=== PATIENT | male | born 1985 | race Caucasian/White ===

== ENCOUNTER 2019-06-04 16:17 | Emergency (ER) | payer OTHER ==
--- NOTE | 2019-06-04 16:46 | ED Physician Documentation ---
PD HPI HEENT - Stated complaint Stated Complaint: LT EAR PX - Chief complaint Chief Complaint: Heent - History obtained from History obtained from: Patient - History of Present Illness Timing - onset: How many days ago (2) Timing - duration: Days (2) Timing - details: Gradual onset, Still present Location: Left ear Improves: Medication Associated symptoms: Headache. No: Fever, Congestion, Rhinorrhea, Trismus, Unable to swallow, Swollen nodes, Facial swelling, Cough Similar symptoms before: Diagnosis (swimmers ear) Recently seen: Not recently seen - Additional information Additional information: 33-year-old male has some pain to the left ear he is used some swimmer's ear drops to it and despite this he had continued pain this morning and he is come to the emergency department for further evaluation and treatment. He is worried about an overwhelming infection. He has had this infection previously. He does not swim but he does clean his ears every morning after he gets out of the shower. He is afraid he may be doing this too vigorously. He denies any nasal congestion cough sore throat or signs of systemic illness. He does have some headache and he has had a problem with cerumen. Review of Systems Constitutional: denies: Fever, Chills Eyes: denies: Decreased vision Ears: reports: Ear pain, Drainage/discharge. denies: Loss of hearing Nose: denies: Rhinorrhea / runny nose, Congestion Throat: denies: Sore throat Cardiac: denies: Chest pain / pressure, Palpitations Respiratory: denies: Dyspnea, Cough GI: denies: Vomiting PD PAST MEDICAL HISTORY - Present Medications Home Medications: Ambulatory Orders Medication Instructions Recorded Confirmed Neomycin/Polymyx/Hc Otic Drops 4 drops LEFTEAR QID #1 bottle 06/04/19 [Cortisporin Ear Susp] - Allergies Allergies/Adverse Reactions: Allergies Allergy/AdvReac Type Severity Reaction Status Date / Time Penicillins Allergy Unknown Verified 06/04/19 16:28 PD ED PE NORMAL - Vitals Vital signs reviewed: Yes (Normal) - General General: Alert and oriented X 3, No acute distress, Well developed/nourished - HEENT HEENT: Atraumatic, PERRL, EOMI, Other (There is inflammation in the canal itself with swelling as well. There is cerumen and debris in the canal and I am unable to see the tympanic membrane. 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 He has been using an [id number] preparation with some vinegar in it and despite this he did not have improvement after 1 day. I suspect he does have more improvement than he realizes. We will place him on some Cortisporin otic. I have discussed with the patient the anti-inflammatory properties and the cerumen impactions present bilaterally. He will use his cerumen softening drops. Departure - Departure Disposition: 01 Home, Self Care Clinical Impression: Impacted cerumen of both ears Otitis externa Qualifiers: Otitis externa type: swimmer's ear Chronicity: acute Laterality: left Qualified Code(s): H60.332 - Swimmer's ear, left ear Condition: Stable Instructions: ED Otitis Externa, ED Wax Ear Home Removal Follow-Up: VIRGILIO SHORE [Primary Care Provider] - Prescriptions: Neomycin/Polymyx/Hc Otic Drops [Cortisporin Ear Susp] 4 drops LEFTEAR QID #1 bottle
== END 2019-06-04 16:55 | disposition home or self-care (01) ==
LOC: ED 16:17
DX: H60.332 Swimmer's ear, left ear (principal); H61.23 Impacted cerumen, bilateral
CPT/HCPCS: 99282; 99284

== ENCOUNTER 2019-12-25 09:50 | Emergency (ER) | payer OTHER ==
[2019-12-25 09:58] VITALS: BP 152/89
--- NOTE | 2019-12-25 10:19 | ED Physician Documentation ---
PD HPI LOWER EXT INJURY - Stated complaint Stated Complaint: R FOOT PX - Chief complaint Chief Complaint: General - History obtained from History obtained from: Patient - History of Present Illness PD HPI LOW EXT INJURY LOCATION: Right, Toe Type of injury: Laceration (he had gotten small laceration dorsum foot near 2nd MT head but this has slight redness, no drainage and is not in connection contiguous with the area that appears gout.). No: Fall, Twist Timing - onset: How many days ago (few) Timing - details: Gradual onset, Still present Improved by: Rest Worsened by: Moving, Palpating Associated symptoms: Swelling (locally mild), Discolored (very red and tender at base great toe MT head medially. No flunctuance.). No: Weakness, Numbness Similar symptoms before: Diagnosis (had similar episode 2-3 months or so ago and was Dx with gout.) Review of Systems Constitutional: denies: Fever, Chills Nose: denies: Rhinorrhea / runny nose, Congestion Throat: denies: Sore throat Respiratory: denies: Cough GI: denies: Nausea, Vomiting, Diarrhea Skin: reports: Rash PD PAST MEDICAL HISTORY - Past Medical History Past Medical History: Yes Cardiovascular: Hypertension Neuro: Migraines Musculoskeletal: Gout - Past Surgical History Past Surgical History: Yes - Present Medications Home Medications: Ambulatory Orders Medication Instructions Recorded Confirmed Neomycin/Polymyx/Hc Otic Drops 4 drops LEFTEAR QID #1 bottle 06/04/19 [Cortisporin Ear Susp] Colchicine [Colcrys] 1.2 mg PO ONCE #2 tablet 10/14/19 Hydrocodone/Acetaminophen 1 - 2 each PO Q6H PRN #14 tablet 10/14/19 [Hydrocodon-Acetaminophen 5-325] Indomethacin [Indocin] 25 mg PO BIDWM PRN #10 capsule 10/14/19 predniSONE [Deltasone] 20 mg PO [id number] #21 tab 10/14/19 Cephalexin [Keflex] 500 mg PO TID #15 capsule 12/25/19 Colchicine 0.6 mg PO BID #5 capsule 12/25/19 Mupirocin 1 applic TP TID #15 g 12/25/19 dexAMETHasone [Decadron] 4 mg PO DAILY #5 tablet 12/25/19 - Allergies Allergies/Adverse Reactions: Allergies Allergy/AdvReac Type Severity Reaction Status Date / Time Penicillins Allergy Unknown Verified 12/25/19 09:58 - Social History Does the pt smoke?: No Smoking Status: Never smoker Does the pt drink ETOH?: Yes Does the pt have substance abuse?: No - Immunizations Immunizations are current?: Yes PD ED PE NORMAL - Vitals Vital signs reviewed: Yes - General General: Alert and oriented X 3, No acute distress, Well developed/nourished - Derm Derm: Normal color, Warm and dry, Other (redness with tenderness medial great toe MT head area. Very tender. Redness in rounded in the area of the MT head. No streaking, nor any drainage. Small partial thickness lac dorsal area near 2nd toe MTP. No purulence, but there is some mild redness around the edges.) - Extremities Extremities: Other (the medial base of the great toe is red/warm/ and tender. ) - Neuro Neuro: Alert and oriented X 3, No motor deficit, No sensory deficit Results - Vitals Vitals: Vital Signs - 24 hr 12/25/19 09:55 Temperature 36.8 C Heart Rate 60 Respiratory 18 Rate Blood Pressure 152/89 H O2 Saturation 97 Oxygen O2 Source Room air PD MEDICAL DECISION MAKING - ED course Complexity details: considered differential (suprficial lac of foot dorsal aspect near head of 2nd MT head. Slight redness of that but not much tender and there is not contiguous connect to the marked redness medial aspect first MT head. Appears main symptoms are gout. ), d/w patient Departure - Departure Disposition: 01 Home, Self Care Clinical Impression: Laceration of skin of left foot Qualifiers: Encounter type: initial encounter Qualified Code(s): S91.312A - Laceration without foreign body, left foot, initial encounter Gout attack Qualifiers: Gout site: toe Gout etiology: unspecified cause Laterality: left Qualified Code(s): M10.9 - Gout, unspecified Condition: Stable Record reviewed to determine appropriate education?: Yes Instructions: ED Diet Gout Follow-Up: DAMI Walker [Provider Group] Prescriptions: Colchicine 0.6 mg PO BID #5 capsule dexAMETHasone [Decadron] 4 mg PO DAILY #5 tablet Cephalexin [Keflex] 500 mg PO TID #15 capsule Mupirocin 1 applic TP TID #15 g Comments: There is a little bit of redness at the small laceration but I do not think it is causing the redness and swelling at the side of the toe. This looks more consistent with gout. That said we can go some antibiotics topical and oral for the next several days to help if there is some infection. Otherwise we will treated as gout with the anti-gout medicine colchicine as well as Decadron steroid as directed. Continue with an anti-inflammatory such as ibuprofen or could use indomethacin instead. Do not use too much of a dose of those so as to not upset your stomach concurrent with the colchicine and Decadron. Recheck if not improving well over the next few days. Follow-up with your primary care for next week or so once you are well and they could potentially check your blood tests for uric acid and calcium to see if your blood levels are too high associated with now a couple of gout episodes. If so there are some preventive medicines that can be used. The blood test tend to be not as accurate during the gout flareup so I did not draw them today. Minimal walking in boot wearing today and tomorrow due to the pain. Forms: Activity restrictions Discharge Date/Time: 12/25/19 11:32
[2019-12-25] MEDS ORDERED: DEXAMETHASONE 10 MG/ML VIAL PO STA (11:03)
[2019-12-25] MEDS ORDERED: NAPROXEN 250 MG TABLET PO STA (11:03)
[2019-12-25] MEDS ORDERED: CHERRY SYRUP 10 ML UDC PO ONE (11:03)
[2019-12-25] MEDS ORDERED: cephALEXin 250 MG CAPSULE PO STA (11:03)
[2019-12-25] MEDS ORDERED: ACETAMINOPHEN 325 MG TABLET PO STA (11:03)
== END 2019-12-25 11:32 | disposition home or self-care (01) ==
LOC: ED 09:50
DX: S91.311A Laceration without foreign body, right foot, initial encounter (principal); W45.8XXA Other foreign body or object entering through skin, initial encounter; M10.071 Idiopathic gout, right ankle and foot; I10 Essential (primary) hypertension
CPT/HCPCS: 99283; A9270

== ENCOUNTER 2022-07-25 13:10 | Emergency (ER) | payer OTHER ==
[2022-07-25 13:25] VITALS: BP 155/99
--- NOTE | 2022-07-25 14:07 | ED Physician Documentation ---
History of Present Illness - Stated complaint Stated Complaint: LFT ARM/ELBOW PX - Chief complaint Chief Complaint: Ext Problem - History obtained from History obtained from: Patient - History of Present Illness Timing: Today Pain level max: 5 Pain level now: 0 - Additonal information Additional information: Patient is a 36-year-old male who presents to the emergency department stating that he had a dull ache in the inferior portion of his left bicep earlier today. Described as a 5 out of 10. Nothing really made it better or worse. No numbness or tingling. Does not recall any injury. Does not use any IV drugs. No fevers. No chills. Currently asymptomatic. Using the arm freely. Has not had similar symptoms previously. He states that he has had problems with the right elbow with weight lifting, but never in the left. Review of Systems Neurologic: denies: Focal weakness, Numbness PD PAST MEDICAL HISTORY - Past Medical History Cardiovascular: Hypertension Neuro: Migraines Musculoskeletal: Gout - Past Surgical History Past Surgical History: Yes - Present Medications Home Medications: Ambulatory Orders Medication Instructions Recorded Confirmed Neomycin/Polymyx/Hc Otic Drops 4 drops LEFTEAR QID #1 bottle 06/04/19 [Cortisporin Ear Susp] Colchicine [Colcrys] 1.2 mg PO ONCE #2 tablet 10/14/19 Hydrocodone/Acetaminophen 1 - 2 each PO Q6H PRN #14 tablet 10/14/19 [Hydrocodon-Acetaminophen 5-325] Indomethacin [Indocin] 25 mg PO BIDWM PRN #10 capsule 10/14/19 predniSONE [Deltasone] 20 mg PO [id number] #21 tab 10/14/19 Colchicine 0.6 mg PO BID #5 capsule 12/25/19 Mupirocin 1 applic TP TID #15 g 12/25/19 cephALEXin [Keflex] 500 mg PO TID #15 capsule 12/25/19 dexAMETHasone [Decadron] 4 mg PO DAILY #5 tablet 12/25/19 - Allergies Allergies/Adverse Reactions: Allergies Allergy/AdvReac Type Severity Reaction Status Date / Time Penicillins Allergy Unknown Verified 12/25/19 09:58 - Social History Does the pt smoke?: No Smoking Status: Never smoker Does the pt drink ETOH?: Yes Does the pt have substance abuse?: No - Immunizations Immunizations are current?: Yes PD ED PE NORMAL - Vitals Vital signs reviewed: Yes - General General: Alert and oriented X 3, No acute distress - Derm Derm: Warm and dry - Extremities Extremities: Other (Left upper extremity - Normal examination of the left upper extremity including the bicep, tricep, elbow, radius, ulna. Full range of motion of all joints without pain. Neurovascular intact. No swelling. Normal skin) - Neuro Neuro: Alert and oriented X 3 Results - Vitals Vitals: Vital Signs - 24 hr 07/25/22 13:16 Temperature 36.5 C Heart Rate 73 Respiratory 20 Rate Blood Pressure 155/99 H O2 Saturation 96 Oxygen O2 Source Room air - Rads (name of study) Left upper extremity duplex ultrasound Relevant Findings:: Final report received, See rad report (normal) PD Medical Decision Making - ED course Complexity details: reviewed results, re-evaluated patient, considered differential (No indication for x-ray. No evidence of tendinitis, infection, fracture.), d/w patient ED course: Patient with left bicep pain earlier today. Unclear etiology. Duplex ultrasound is negative. Asymptomatic currently. Full range of motion without any problems in the emergency department. Neurovascular intact. Patient counseled regarding signs and symptoms for which I believe and urgent re- evaluation would be necessary. Patient with good understanding of and agreement to plan and is comfortable going home at this time This document was made in part using voice recognition software. While efforts are made to proofread this document, sound alike and grammatical errors may occur. Departure - Departure Disposition: 01 Home, Self Care Clinical Impression: Arm pain Qualifiers: Laterality: left Qualified Code(s): M79.602 - Pain in left arm Condition: Good Instructions: ED Acute Pain [facility] Follow-Up: your,doctor as needed [Other] Comments: The cause of your pain earlier today is unclear. Please follow-up with your doctor for further care. Your ultrasound is negative today. Please return if you worsen Discharge Date/Time: 07/25/22 15:20
--- NOTE | 2022-07-25 15:19 | Ultrasound Report ---
PROCEDURE: Duplex Ext Veins Left INDICATIONS: LUE pain/swelling TECHNIQUE: Real-time imaging, as well as color and pulse Doppler interrogation, were performed of the lower extr emity deep veins from the inguinal ligament to the popliteal fossa. COMPARISON: None. FINDINGS: The deep veins are normally compressible, and free of intraluminal thrombus. Color and pu lse Doppler demonstrate normal phasic intraluminal flow. There is normal augmentation response to di stal compression maneuver. IMPRESSION: No DVT within the left upper cavity. Reviewed by: Hubert Richards MD on 07/25/2022 2:17 PM NANO Approved by: Hubert Richards MD on 07/25/2022 2:17 PM NANO Station ID: [id number]
== END 2022-07-25 15:20 | disposition home or self-care (01) ==
LOC: ED 13:10
DX: M79.602 Pain in left arm (principal); I10 Essential (primary) hypertension
CPT/HCPCS: 99283; 99284